=== PATIENT | female | born 1960 | race Caucasian/White ===

== ENCOUNTER 2019-03-16 08:15 | Inpatient (IN) | payer OTHER ==
[2019-03-16 09:41] LABS: #Eosinphils 0.1 thou/uL (0.0-0.7); #Lymphocytes 2.2 thou/uL (1.20-3.40); #Neutrophils 5.1 thou/uL (1.40-6.50); %Basophils 0.3 % (0.0-1.0); %Eosinophils 0.9 % (0.0-10.0); %Lymphocytes 26.2 % (21.0-51.0); %Monocytes 12.3 % (0.0-10.0); %Neutrophils 60.3 % (42.0-75.0); Hemoglobin 13.5 g/dL (12.0-16.0); Mean Corpuscular HGB CONC 33.6 g/dL (32.0-36.0); Mean Corpuscular Hemoglobin 30.2 pg (27.0-31.0); Mean Corpuscular Volume 90.1 fL (78.0-98.0); Mean Platelet Volume 7.5 fL (7.4-10.4); Platelet Count 228 thou/uL (130-400); Red Blood Cell (RBC) Count 4.48 mill/uL (4.20-5.40); White Blood Cell (WBC) Count 8.4 thou/uL (4.8-10.8)
[2019-03-16 10:06] LABS: Anion Gap 10 mmol/L (10-20); BUN (Urea Nitrogen) 17 mg/dL (9.8-20.1); Calc. Creatinine Clearance 125 mL/min (70-130); Calcium 9.4 mg/dL (7.8-10.44); Carbon Dioxide 28 mmol/L (22-29); Chloride 105 mmol/L (98-107); Estimated GFR-MDRD 69; Glucose 97 mg/dL (70-105); Potassium 4.2 mmol/L (3.5-5.1); Sodium 139 mmol/L (136-145)
[2019-03-16] MEDS ORDERED: Sodium Chloride 0.9% 10 ML ONE (10:37)
[2019-03-16] MEDS ORDERED: Fentanyl 100 MCG/2 ML VIAL ONE ×3 (10:45→14:18)
[2019-03-16] MEDS ORDERED: Midazolam HCl 2 mg/2 ml Vial ONE (10:56)
[2019-03-16] MEDS ORDERED: Promethazine HCl 25 MG/ML VIAL IM PRN ×2 (12:03→13:04)
[2019-03-16] MEDS ORDERED: Ondansetron HCl/PF 4 MG/2 ML Vial IVP PRN (12:03)
[2019-03-16] MEDS ORDERED: Promethazine HCl 25 MG/ML VIAL SLOW IVP PRN (12:03)
[2019-03-16] MEDS ORDERED: diphenhydrAMINE 50 MG/ML VIAL IVP PRN (13:04)
[2019-03-16] MEDS ORDERED: Bisacodyl 10 MG SUPP PR PRN (13:04)
[2019-03-16] MEDS ORDERED: tiZANidine HCl 4 MG TAB PO PRN (13:04)
[2019-03-16] MEDS ORDERED: Promethazine HCl 12.5 MG SUPP PR PRN (13:04)
[2019-03-16] MEDS ORDERED: Milk Of Magnesia 30 ML UDCUP PO PRN (13:04)
[2019-03-16] MEDS ORDERED: Promethazine 25 MG TAB PO PRN (13:04)
[2019-03-16] MEDS ORDERED: Mag-Al 1200 mg/1200 mg/30 ML UDCUP PO PRN (13:04)
[2019-03-16] MEDS ORDERED: HYDROcodone/Acetaminophen 10/325 mg Tablet PO PRN (13:04)
[2019-03-16] MEDS ORDERED: traMADol HCl 50 MG TAB PO PRN ×2 (13:04)
[2019-03-16] MEDS ORDERED: diphenhydrAMINE 25 MG CAP PO PRN (13:04)
[2019-03-16] MEDS ORDERED: Morphine 2 MG/ML SYRINGE SLOW IVP PRN (13:07)
[2019-03-16] MEDS ORDERED: Ondansetron PF 4 MG/2 ML Vial IM PRN (13:07)
--- NOTE | 2019-03-16 15:50 | OP ---
DATE OF PROCEDURE: 03/16/2019 [employer]ALL ASSEMBLER: Dhaval Christianson PA-C PROCEDURE PERFORMED: Lumbar laminectomy L4-L5, posterolateral arthrodesis, pedicle screw instrumentation, demineralized bone matrix, local morselized autograft L4-L5. DESCRIPTION OF PROCEDURE: The patient was brought to the operating room and intubated. She was rolled in the prone position on gel-filled chest rolls. An incision was made exposing L4 and L5 and the level was confirmed by x-ray. We performed complete L5 and inferior L4 laminectomy, completely decompressed the neural elements. Pedicle screws were then placed at L4 and L5 bilaterally using lateral fluoroscopic guidance. The tracey was secured between the screws, connected by nuts, which were final tightened. The wound was then extensively irrigated and MAC hemostasis was secured. A combination of demineralized bone matrix, local morselized autograft was laid over the lamina and posterolateral surfaces for the purpose of arthrodesis. Vancomycin powder was applied and the wound was then closed in anatomic layers. Job ID: [id number]
[2019-03-16] MEDS ORDERED: hydrALAZINE 20 MG/ML VIAL SLOW IVP PRN (19:15)
--- NOTE | 2019-03-16 19:34 | CON ---
DATE OF CONSULTATION: PRIMARY CARE PROVIDER: Out of town. CHIEF COMPLAINT: Management of medical comorbidities. HISTORY OF PRESENT ILLNESS: Ms. Allen is a pleasant 58-year-old lady, who was seen at [facility] on March 16, 2019. She underwent lumbar laminectomy at L4-L5, posterior lateral arthrodesis, pedicle screw instrumentation, and local morselized autograft at L4-L5 earlier today. Hospitalist Service has been consulted for management of medical comorbidities. The patient denies any chest pain or shortness of breath. She denies any fevers or chills. She denies any nausea or vomiting. She denies any abdominal pain. REVIEW OF SYSTEMS: All systems were reviewed and found to be negative except for the pertinent positives mentioned above. PAST MEDICAL HISTORY: Gastroesophageal reflux disease and hypothyroidism. The patient was also told that she has a scar in her heart. PAST SURGICAL HISTORY: Left carpal tunnel surgery, bilateral total knee replacements, cholecystectomy, hernia repair with mesh, colonoscopy, hysterectomy, and foot surgery. ALLERGIES: MELOXICAM AND LATEX. CURRENT MEDICATIONS: 1. Ibuprofen 200 mg every 6 hours as needed. 2. Alpha lipoic acid 200 mg 2 times a day. 3. Vitamin C 1000 mg daily. 4. Vitamin D3 400 units daily. 5. Flonase 2 sprays to each nares daily. 6. Garlic 1000 mg daily. 7. Glucosamine/chondroitin sulfate one tablet daily. 8. Levothyroxine 50 mcg daily. 9. Methylsulfonylmethane (MSM) 1000 mg daily. 10. Multivitamins one tablet daily. 11. Protonix 40 mg daily as needed. 12. Vitamin B6 100 mg daily. 13. Multivitamin one capsule daily. FAMILY HISTORY: Strong family history of colon cancer in her mother and several siblings. SOCIAL HISTORY: Occasional marijuana use, no tobacco or alcohol use. PHYSICAL EXAMINATION: GENERAL: On examination, Ms. Allen is awake and alert, not in acute distress. VITAL SIGNS: Blood pressure is 149/81, pulse 83, respiratory rate 18, and oxygen saturation 97% on room air. She is afebrile. She is morbidly obese, with a BMI of 44.8. EYES: No scleral icterus. No conjunctival pallor. ENT: Moist mucosal membranes. No oropharyngeal erythema or exudates. NECK: Supple, nontender. Trachea is midline. RESPIRATORY: Accessory muscles of breathing are not active. Chest wall movements are symmetric bilaterally. Lungs are clear to auscultation without wheeze, rhonchi, or crepitations. CARDIOVASCULAR: S1 and S2 are heard, regular. Peripheral pulses are palpable. NEUROLOGIC: Cranial nerves 2 through 12 are intact. ABDOMEN: Soft, nontender. Bowel sounds are heard. MUSCULOSKELETAL: The patient is able to move all 4 extremities. SKIN: No rashes. LYMPHATICS: No cervical lymphadenopathy. PSYCHIATRIC: Normal mood, normal affect. The patient is oriented to person, place, and time. LABORATORY DATA: Ms. Allen's labs and investigations were reviewed. She has an unremarkable CBC and normal Chem-7. ASSESSMENT AND PLAN: Ms. Allen is a pleasant 58-year-old lady, who was seen at [facility] on March 16, 2019. Her problem list includes: 1. Hypothyroidism: This appears to be stable. Continue Synthroid. 2. Gastroesophageal reflux disease: This appears to be stable as well. Continue Protonix p.r.n. 3. We will add p.r.n. hydralazine for blood pressure spikes during this hospitalization. LEVEL OF RISK: Low. LEVEL OF COMPLEXITY: Low. Job ID: [id number]
[2019-03-16] MEDS: CEFAZOLIN 2 GM in Premix Bag 1 BAG IVPB SCH (20:30)
[2019-03-16 21:06] VITALS: BMI 46.9
[2019-03-16] MEDS: HYDROcodone/Acetaminophen 10/325 mg Tablet PO PRN (23:36)
[2019-03-17] MEDS: CEFAZOLIN 2 GM in Premix Bag 1 BAG IVPB SCH ×3 (03:04→18:18)
[2019-03-17] MEDS: HYDROcodone/Acetaminophen 10/325 mg Tablet PO PRN ×3 (05:44→20:07)
[2019-03-17] MEDS: Levothyroxine Sodium 50 MCG TAB PO SCH (05:46)
[2019-03-17] MEDS ORDERED: Levothyroxine Sodium 100 MCG TAB PO SCH (06:00)
[2019-03-17] MEDS ORDERED: [UNRECOGNIZED DRUG - REMARK] EA NARE SCH (09:00)
[2019-03-17] MEDS ORDERED: Non-Formulary Item 1 EACH (Ascorbic Acid [C-1000] 1,000 MG) PO SCH (09:00)
[2019-03-17] MEDS ORDERED: Cholecalciferol (Vitamin D3) 400 UNITS TAB PO SCH (09:00)
--- NOTE | 2019-03-17 09:49 | PRG ---
DATE OF SERVICE: 03/17/2019 SUBJECTIVE: The patient is postoperative day #1, status post L4-L5 decompression and fusion. Following the surgery, she was transitioned to the Med/Surg floor, where her pain has been well-controlled with p.o. medications, she has been tolerating a regular diet, and she has been voiding appropriately. The patient did have LASHAWN output of 100 mL out overnight. OBJECTIVE: On exam this morning, the patient is awake and alert, in no acute distress. She has free active range of motion in all extremities. No focal motor weakness. There is a small amount of dark red blood in the LASHAWN. PLAN: We will plan to leave LASHAWN additional night and monitor closely, working on mobilization and pain control. I anticipate the patient will be able to discharge home tomorrow. Job ID: [id number]
[2019-03-17] MEDS: Fluticasone Propionate Nasal Spray 16 gm Bottle NASAL SCH (09:50)
[2019-03-17] MEDS: Cholecalciferol (Vitamin D3) 400 UNITS TAB PO SCH (09:50)
[2019-03-17] MEDS: Folic Acid 1 MG TAB PO SCH (09:51)
[2019-03-17] MEDS: Ascorbic Acid 500 mg Chewable Tablet PO SCH (09:52)
[2019-03-17] MEDS: pyridOXINE 50 MG (B6) TAB PO SCH ×2 (09:53→09:54)
[2019-03-17] MEDS: Multivit, Therapeutic 1 TAB PO SCH (09:53)
[2019-03-17] MEDS: Cyanocobalamin (Vitamin B-12) 1,000 MCG TAB PO SCH (09:54)
--- NOTE | 2019-03-17 14:02 | PDOC.HOSPP ---
- Subjective Encounter Date: 03/17/19 Encounter Time: 08:20 Subjective: Pt seen for followup re: hypothyroidism. No complaints. - Objective Vital Signs & Weight: Vital Signs (12 hours) Temp Pulse Resp BP BP Pulse Ox 03/17/19 10:47 97.4 F L 68 16 110/73 99 03/17/19 07:59 97.7 F 68 16 105/70 96 03/17/19 04:00 98.1 F 60 16 114/73 97 Weight Weight 256 lb 6.4 oz I&O: 03/16/19 03/17/19 03/18/19 06:59 06:59 06:59 Intake Total 1200 Output Total 170 Balance 1030 Result Diagrams: 03/16/19 09:31 03/16/19 09:31 Additional Labs: Labs and MARs reviewed by ms Hospitalist ROS - Review of Systems Cardiovascular: denies: chest pain, palpitations, orthopnea, paroxysmal noc. dyspnea, edema, light headedness Gastrointestinal: denies: nausea, vomiting, abdominal pain, diarrhea, constipation, melena, hematochezia Musculoskeletal: reports: back pain - Medication Medications: Active Medications Generic Name Dose Route Start Last Admin Trade Name Freq PRN Reason Stop Dose Admin Hydrocodone Bitart/Acetaminophen 2 tab 03/16/19 13:04 03/17/19 13:06 [place] 10/325 PO 2 tab Q4H PRN Administration PAIN (4-6) Ascorbic Acid 1,000 mg 03/17/19 09:00 03/17/19 09:52 Vitamin C PO 1,000 mg DAILY LUZ Administration Cholecalciferol 400 units 03/17/19 09:00 03/17/19 09:50 Vitamin D PO 400 units DAILY LUZ Administration Cyanocobalamin 1,000 mcg 03/17/19 09:00 03/17/19 09:54 Vitamin B-12 PO 1,000 mcg DAILY LUZ Administration Fluticasone Propionate 0 gm 03/17/19 09:00 03/17/19 09:50 Flonase Nasal [place] NASAL 2 spr DAILY LUZ Administration Folic Acid 2.5 mg 03/17/19 09:00 03/17/19 09:51 Folvite PO 2.5 mg DAILY LUZ Administration Cefazolin Sodium/Dextrose 2 gm 50 mls @ 100 mls/hr 03/16/19 18:00 09/24/19 09 :50 / Device IVPB 50 mls 0200,1000,1800 LUZ Administration Levothyroxine Sodium 50 mcg 03/17/19 06:00 03/17/19 05:46 Synthroid PO 50 mcg 0600 LUZ Administration Morphine Sulfate 2 mg 03/16/19 13:07 03/16/19 20:31 Morphine SLOW IVP 2 mg Q1H PRN Administration Moderate BREAKTHRU Pain (4-6) Multivitamins 1 tab 03/17/19 09:00 03/17/19 09:53 Theragran PO 1 tab DAILY LUZ Administration Pyridoxine HCl 100 mg 03/17/19 09:00 03/17/19 09:53 Vitamin B 6 PO 100 mg DAILY LUZ Administration Pyridoxine HCl 25 mg 03/17/19 09:00 03/17/19 09:54 Vitamin B 6 PO 25 mg DAILY LUZ Administration Tizanidine HCl 4 mg 03/16/19 13:04 03/16/19 20:31 Zanaflex PO 4 mg Q6H PRN Administration MUSCLE SPASM - Exam General - other findings: Morbid obesity Eye: anicteric sclera ENT: moist mucosa Neck: supple, no JVD Heart: RRR Respiratory: CTAB Gastrointestinal: soft, non-tender Neurological: no weakness Musculoskeletal: normal strength Psychiatric: normal affect, normal behavior Hosp A/P (1) Hypothyroidism Code(s): E03.9 - HYPOTHYROIDISM, UNSPECIFIED Status: Chronic (2) GERD (gastroesophageal reflux disease) Code(s): K21.9 - GASTRO-ESOPHAGEAL REFLUX DISEASE WITHOUT ESOPHAGITIS Status: Chronic (3) Morbid obesity Code(s): E66.01 - MORBID (SEVERE) OBESITY DUE TO EXCESS CALORIES Status: Chronic - Plan PT/OT, out of bed/ambulate continue synthroid. continue Protonix.
--- NOTE | 2019-03-17 14:51 | PRG ---
DATE OF SERVICE: 03/17/2019 SUBJECTIVE: Ms. Allen is improving. She is ambulating in the arriaga and doing reasonably well. Pain control remains an issue and she will remain in the hospital today for this purpose. Job ID: [id number]
[2019-03-17] MEDS: Sodium Chloride 0.9% 1,000 ML IV SCH ×2 (16:01→19:44)
[2019-03-18] MEDS: CEFAZOLIN 2 GM in Premix Bag 1 BAG IVPB SCH ×2 (02:05→12:13)
[2019-03-18] MEDS: Sodium Chloride 0.9% 1,000 ML IV SCH (03:41)
[2019-03-18] MEDS: Levothyroxine Sodium 50 MCG TAB PO SCH (05:11)
[2019-03-18] MEDS: Folic Acid 1 MG TAB PO SCH (09:12)
[2019-03-18] MEDS: Cyanocobalamin (Vitamin B-12) 1,000 MCG TAB PO SCH (09:12)
[2019-03-18] MEDS: Ascorbic Acid 500 mg Chewable Tablet PO SCH (09:13)
[2019-03-18] MEDS: Cholecalciferol (Vitamin D3) 400 UNITS TAB PO SCH (09:13)
[2019-03-18] MEDS: Multivit, Therapeutic 1 TAB PO SCH (09:13)
[2019-03-18] MEDS: pyridOXINE 50 MG (B6) TAB PO SCH ×2 (09:14)
[2019-03-18] MEDS: HYDROcodone/Acetaminophen 10/325 mg Tablet PO PRN ×2 (09:18→14:23)
[2019-03-18] MEDS: Fluticasone Propionate Nasal Spray 16 gm Bottle NASAL SCH (09:24)
[2019-03-18 11:07] VITALS: TEMP 97.8
[2019-03-18 14:23] VITALS: BP 131/75
--- NOTE | 2019-03-19 01:41 | DIS ---
DATE OF ADMISSION: 03/16/2019 DATE OF DISCHARGE: 03/18/2019 The patient is a 58-year-old female, status post L4-L5 decompression and fusion. Following surgery, she was transitioned to the Med/Surg floor, where her pain has been well-controlled with p.o. medications. She has been tolerating a regular diet and she has been voiding appropriately. She did have a LASHAWN drain placed intraoperatively and had 110 mL out overnight last night. The fluid is now much more serous in color compared to bloody color initially. The patient is otherwise doing well and walking well throughout the hallways. On exam, she is awake, alert, in no acute distress. She has free active range of motion of all extremities. No focal motor weakness. Incision is clean, dry, and intact. We will plan to remove her LASHAWN drain, discontinue her IV Ancef and dismiss to home. I have discussed home care and precautions. The patient has been provided with scripts for Victoria, Zanaflex, and Keflex. I will follow up with the patient in 2 weeks and recheck set of x-rays at that time. Discussed home care precautions and provided instructions. Job ID: [id number]
== END 2019-03-18 14:40 | disposition home or self-care (01) | DRG 460 ==
LOC: SURG A 08:51
PROVIDERS: ADMIT Neurological Surgery; ATTEND Neurological Surgery
PROC: 0SG0071 Fusion of Lumbar Vertebral Joint with Autologous Tissue Substitute, Posterior Approach, Posterior Column, Open Approach (ICD-10-PCS; principal; 2019-03-16)
PROC: 01NB0ZZ Release Lumbar Nerve, Open Approach (ICD-10-PCS; 2019-03-16)
DX: M43.16 Spondylolisthesis, lumbar region (principal); Z68.42 Body mass index [BMI] 45.0-49.9, adult; E03.9 Hypothyroidism, unspecified; K21.9 Gastro-esophageal reflux disease without esophagitis; E66.01 Morbid (severe) obesity due to excess calories; Z96.653 Presence of artificial knee joint, bilateral; Z90.49 Acquired absence of other specified parts of digestive tract; Z91.040 Latex allergy status; Z90.710 Acquired absence of both cervix and uterus; Z88.8 Allergy status to other drugs, medicaments and biological substances
CPT/HCPCS: 36415; 76000; 80048; 85025; C1713; C1768; J0690; J2250; J2270; J3010; J3370; J3490

== ENCOUNTER 2019-04-02 15:58 | Outpatient (CLI) | payer OTHER ==
--- NOTE | 2019-04-02 16:20 | RAD ---
EXAM: XR Lumbar Spine 2 Or 3 View PROVIDED CLINICAL HISTORY: Follow-up postsurgical changes. Spondylolisthesis L4-5 level. COMPARISON: None FINDINGS: Postsurgical changes related to posterior fusion at the L4-5 level are noted. Bipedicular screws and posterior rods transfix this level. No hardware complication is appreciated. Laminectomy defects are seen at this level. There is suggestion of trace anterolisthesis of L4 on L5. There is slight right convex curvature of the thoracolumbar spine. Scattered minimal osteophytes are seen in the lumbar spine. There is trace retrolisthesis of L3 on L4. There is mild narrowing of the intervertebral disc spaces at the L2-3, L3-4, and L5-S1 levels. The vertebral body heights are within normal limits, no fracture is visualized. Surgical clips overlie the pelvis and right abdomen. IMPRESSION: Postsurgical and degenerative changes of the lumbar spine.
== END 2019-04-02 15:59 | disposition home or self-care (01) ==
LOC: TBSIIMAG 15:58
PROVIDERS: ATTEND Neurological Surgery
DX: M43.16 Spondylolisthesis, lumbar region (principal); M47.816 Spondylosis without myelopathy or radiculopathy, lumbar region; Z98.1 Arthrodesis status
CPT/HCPCS: 72100